=== PATIENT | male | born 1965 | race American Indian/Alaskan Native ===

== ENCOUNTER 2019-10-18 18:27 | Emergency (ER) | payer OTHER, MEDICAID, SELFPAY ==
[2019-10-18 18:34] VITALS: BP 104/77; PULSE 82; RESP 12; TEMP 36.6; O2SAT 98; BMI 26.2
[2019-10-18 18:50] VITALS: BP 103/64; BP 105/59; BP 106/58; PULSE 80; PULSE 82; PULSE 85
--- NOTE | 2019-10-18 18:57 | DI.CT.S_ITS ---
PROCEDURE: CT HEAD/BRAIN WO CON INDICATIONS: Syncope TECHNIQUE: Noncontrast 4.5 mm thick angled axial sections acquired from the foramen magnum to the vertex, with coronal and sagittal reformats. For radiation dose reduction, the following was used: automated exposure control, adjustment of mA and/or kV according to patient size. COMPARISON: None. FINDINGS: Image quality: Excellent. CSF spaces: Basal cisterns are patent. No extra-axial fluid collections. Ventricles are normal in size and shape. Brain: No midline shift. No intracranial masses or hemorrhage. Bone-white matter interface is normal. Chronic left basal ganglia infarct Skull and face: Calvarium and visualized facial bones are intact, without suspicious lesions. Sinuses: Visualized sinuses and mastoids are clear. IMPRESSION: 1. No acute process. 2. Chronic left basal ganglia infarct. Dictated by: Whitney Caba M.D. on 10/18/2019 at 19:27 Approved by: Whitney Caba M.D. on 10/18/2019 at 19:27
--- NOTE | 2019-10-18 18:57 | DI.RAD.S_ITS ---
PROCEDURE: XR CHEST 1V INDICATIONS: Chest pain TECHNIQUE: One view of the chest was acquired. COMPARISON: None. FINDINGS: Surgical changes and devices: None. Lungs and pleura: Lungs are clear. No pleural effusions or pneumothorax. Mediastinum: Mediastinal contours appear normal. Heart size is normal. Bones and chest wall: No suspicious bony lesions. Overlying soft tissues appear unremarkable. IMPRESSION: No acute process. Dictated by: Whitney Caba M.D. on 10/18/2019 at 19:29 Approved by: Whitney Caba M.D. on 10/18/2019 at 19:30
--- NOTE | 2019-10-18 18:59 | ED.SYNCOPE ---
HPI - Syncope General Chief Complaint: Syncope Stated Complaint: Syncope Time Seen by Provider: 10/18/19 18:34 Source: patient, family and EMS Mode of arrival: Ambulatory History of Present Illness HPI narrative: Patient here with his sister. Sister knows his medical history very well. Patient brought in by EMS. Patient and sister and [id number] were at the [employer] today. On the 4th hole patient states he is feeling dizzy. While standing he was starting to collapse, no fall, he was caught by his [id number]. Never completely lost consciousness. He remained awake. He denies denies any headache chest pain numbness tingling weakness anywhere. No recent illness nausea vomiting diarrhea. No urinary complaints. No cough cold congestion. Patient and sister state today's activity is not his usual activity. He was more active today. He lives with his mother in [place]. He has inhibited of keeping water in her room all the time to keep hydrated. Patient and sister state he was picked up at 1:30 p.m. this afternoon and has not had anything to eat or drink since 1:30 p.m.. He has not had anything to eat since breakfast this morning. Accu-Chek on scene was 140. Patient has history of a stroke in 2016 that left him with expressive aphasia and slight right-sided weakness. Patient is at baseline according to sister. His normal blood pressure is usually 110/70. He arrived with IV and nearly sent 5% of the normal saline 1 L has been completed before the orthostatics. Orthostatics completed and he is slightly dizzy with changing position which is sometimes common for him. Not tachycardic. Again, patient has had nearly 75% of 1 L of normal saline. Similar event 2 years ago in [place] when standing in line and very crowded environment. Patient had near syncope as well. Similar to today. He was seen at [facility] and sister states he was discharged home likely vasovagal environment because it was hot. Again, patient denies any chest pain dizziness palpitations. No back pain no headache. Patient recalls the entire event. Denies any recent bloody stools or black stools. No hematemesis. Review of Systems Review of Systems Narrative: GENERAL: Denies chills, fatigue, malaise, fever, sweats. HEENT: Denies sinus pain, ear pain, sore throat, difficulty swallowing, dizziness. RESPIRATORY: Denies dyspnea, cough, wheezing, hemoptysis, sputum. CARDIOVASCULAR: Denies chest pain, palpitations, orthopnea, edema, GASTROINTESTINAL: Denies nausea, vomiting, abdominal pain, diarrhea, constipation, melena. : Denies dysuria, frequency, incontinence, hematuria, urinary retention. MUSCULOSKELETAL: denies weakness, joint pain, or bony pain SKIN: Denies rash, skin lesions, or other NEUROLOGIC: Denies any new weakness, denies headache, numbness, change in speech, confusion, seizures, incoordination. Complains of dizziness PSYCHIATRIC: No concerning psychosocial issues. ROS Unobtainable: All systems reviewed & are unremarkable except as noted in HPI and below Patient History Social History Smoking Status: Never smoker Smoking Status: Never smoker alcohol intake frequency: 0-2 drinks per day Substance Use Type: does not use Exam Narrative Exam Narrative: GENERAL: patient appears stated age. Well-nourished, well-developed patient, in no distress, not toxic HEAD: Atraumatic. Normocephalic. EYES: Pupils equal round and reactive. Extraocular motions intact. No scleral icterus. No injection or drainage. ENT: Nose without bleeding, purulent drainage. Throat without erythema, tonsillar hypertrophy or exudate. Airway patent. NECK: Trachea midline. Non tender CARDIOVASCULAR: Regular rate and rhythm without murmurs, gallops, or rubs. RESPIRATORY: Clear to auscultation. Breath sounds equal bilaterally. No wheezes, rales, or rhonchi. GASTROINTESTINAL: Abdomen soft, non-tender, nondistended. EXTREMITIES: No edema or joint tenderness. BACK: Nontender without deformity or crepitance. No flank tenderness. NEURO: AOx4. Clear speech no facial droop light touch intact to bilateral face hands and legs. Strong equal management tech. Negative pronator drift. Steady Romberg at bedside. [id number]-gb-[id number] intact bilaterally no ataxia SKIN: No rash or erythema of visible areas PSYCH: Not anxious, is cooperative Initial Vital Signs Initial Vital Signs: Vital Signs Temperature 97.8 F 10/18/19 18:34 Pulse Rate 82 10/18/19 18:34 Respiratory Rate 12 10/18/19 18:34 Blood Pressure 104/77 10/18/19 18:34 Pulse Oximetry 98 10/18/19 18:34 Scores NIH Stroke Scale Level of Conciousness: Alert, keenly responsive Ask month/age: Answers both questions correctly. Open/close eyes, close hand: Performs both tasks correctly Best gaze horizontal: Normal Visual rodriguez: No visual loss Facial palsy: Normal symetrical movement Left arm drift: No drift for full 10 sec Right arm drift: No drift for full 10 sec Left leg drift: No drift for full 10 sec Right leg drift: No drift for full 10 sec Limb ataxia: Absent Sensory on face/arms/legs: Normal, no sensory loss Best language: No aphasia, normal Dysarthria: Normal Extinction or inattention: No abnormality Total NIH Stroke scale score: 0 Course Orders Ordered: ED Orders 10/18/19 18:45 Complete Blood Count AUTO DIFF Stat Comprehensive Metabolic Panel Stat Troponin & CK Cardiac Panel Stat 10/18/19 18:57 CT head/brain wo con Stat XR chest 1V Stat EKG-12 Lead Stat Reevaluation(s) Reevaluation #1: Blood pressure 114/76. Heart rate 59. Patient feels much better after normal saline 1 L. Up and walking to the bathroom to try to give urine specimen. No dizziness. Unable give urine at this time. Patient and sister do not want wait for urinalysis. Does not want to be checked for UTI. They desire discharge home at this time. Blood pressure back to baseline Time: 20:32 Vital Signs Vital signs: Vital Signs - 8 hr 10/18/19 18:34 10/18/19 18:50 10/18/19 19:36 Temperature 97.8 F Pulse Rate 82 63 Pulse Rate [Orthostatic Lying] 80 Pulse Rate [Orthostatic Sitting] 82 Pulse Rate [Orthostatic Standing] 85 Respiratory Rate 12 16 Blood Pressure 104/77 Blood Pressure [Orthostatic Lying] 103/64 Blood Pressure [Orthostatic Sitting] 105/59 L Blood Pressure [Orthostatic Standing] 106/58 L Pulse Oximetry 98 100 10/18/19 20:00 10/18/19 20:01 10/18/19 20:30 Temperature Pulse Rate 60 58 L 58 L Pulse Rate [Orthostatic Lying] Pulse Rate [Orthostatic Sitting] Pulse Rate [Orthostatic Standing] Respiratory Rate 23 17 16 Blood Pressure 114/76 113/71 Blood Pressure [Orthostatic Lying] Blood Pressure [Orthostatic Sitting] Blood Pressure [Orthostatic Standing] Pulse Oximetry 99 100 100 MDM - Syncope Differential Diagnosis Differential diagnosis: Likely syncope due to orthostatic hypotension, vasovagal syncope, subarachnoid hemorrhage and dehydration Lab Data Attestation: I reviewed the patient's lab results. Result diagrams: 10/18/19 18:45 10/18/19 18:45 Labs: Lab Results 10/18/19 10/18/19 Range/Units 18:45 18:45 WBC 3.0 L (4.5-11.0) X10^3/uL RBC 4.05 L (4.5-5.9) X10^6/uL Hgb 11.7 L (13.5-17.5) g/dL Hct 33.7 L (41-53) % MCV 83.3 (80-100) fL MCH 29.0 (26-34) PG MCHC 34.8 (30-36) % RDW 14.2 (11.6-14.8) % Plt Count 163 (150-400) X10^3/uL Neut % (Auto) 81.7 H (50-75) % Lymph % (Auto) 10.9 L (25-40) % [place] % (Auto) 5.1 (3-14) % Eos % (Auto) 1.6 L (2-4) % Baso % (Auto) 0.7 (0-2) % Neut # (Auto) 2400 (5984-1390) /uL Lymph # (Auto) 300 L (5002-2733) /uL [place] # (Auto) 200 (0-900) /uL Eos # (Auto) 0 (0-450) /uL Baso # (Auto) 0 (0-100) /uL Sodium 135 L (137-145) mmol/L Potassium 3.7 (3.4-5.1) mmol/L Chloride 102 (98-107) mmol/L Carbon Dioxide 28 (22-32) mmol/L BUN 18 (9-20) mg/dL Creatinine 0.77 (0.66-1.25) mg/dL Estimated GFR > 60.0 (>60) mL/min BUN/Creatinine Ratio 23.4 H (6-22) Glucose 125 H (70-100) mg/dL Calcium 8.5 (8.4-10.2) mg/dL Total Bilirubin 0.6 (0.2-1.3) mg/dL AST 23 (17-59) IU/L ALT 15 (<50) IU/L Alkaline Phosphatase 53 (38-126) U/L Total Creatine Kinase 115 (55-170) U/L CK-MB (CK-2) 1.21 (<2.37) ng/mL CK-MB (CK-2) Rel Index 1.1 L (1.5-5.0) % Troponin I < 0.012 (0.01-0.034) ng/mL Total Protein 6.2 L (6.3-8.2) g/dL Albumin 3.8 (3.5-5.0) g/dL Globulin 2.4 (1.7-4.1) g/dL Albumin/Globulin Ratio 1.6 (1.0-2.8) Imaging Data CT scan - head: Radiologist's Impression: [address] [address] [address] Scan Report Signed Patient: Roberto MyrickMR#: [id number] : 1965Acct:[id number] Age/Sex: 54 / MDate of Service: 10/18/19 Loc: ED Accession Number: [id number] Procedure: CT head/brain wo con Ordering Provider: Dmitri Moya MD PROCEDURE: CT HEAD/BRAIN WO CON INDICATIONS: Syncope TECHNIQUE: Noncontrast 4.5 mm thick angled axial sections acquired from the foramen magnum to the vertex, with coronal and sagittal reformats. For radiation dose reduction, the following was used: automated exposure control, adjustment of mA and/or kV according to patient size. COMPARISON: None. FINDINGS: Image quality: Excellent. CSF spaces: Basal cisterns are patent. No extra-axial fluid collections. Ventricles are normal in size and shape. Brain: No midline shift. No intracranial masses or hemorrhage. Bone-white matter interface is normal. Chronic left basal ganglia infarct Skull and face: Calvarium and visualized facial bones are intact, without suspicious lesions. Sinuses: Visualized sinuses and mastoids are clear. IMPRESSION: 1. No acute process. 2. Chronic left basal ganglia infarct. Dictated by: Whitney Caba M.D. on 10/18/2019 at 19:27 Approved by: Whitney Caba M.D. on 10/18/2019 at 19:27 Chest x-ray: Radiologist's Impression: [address] [address] XRay Report Signed Patient: Roberto MyrickMR#: [id number] : 1965Acct:[id number] Age/Sex: 54 / MDate of Service: 10/18/19 Loc: ED Accession Number: [id number] Procedure: XR chest 1V Ordering Provider: Dmitri Moya MD PROCEDURE: XR CHEST 1V INDICATIONS: Chest pain TECHNIQUE: One view of the chest was acquired. COMPARISON: None. FINDINGS: Surgical changes and devices: None. Lungs and pleura: Lungs are clear. No pleural effusions or pneumothorax. Mediastinum: Mediastinal contours appear normal. Heart size is normal. Bones and chest wall: No suspicious bony lesions. Overlying soft tissues appear unremarkable. IMPRESSION: No acute process. Dictated by: Whitney Caba M.D. on 10/18/2019 at 19:29 Approved by: Whitney Caba M.D. on 10/18/2019 at 19:30 ECG Data Attestation: I personally reviewed and interpreted this ECG as follows: Interpretation: Normal sinus rhythm normal EKG ventricular rate 70, no ST elevation depression MDM Narrative Medical decision making narrative: Appropriate for discharge home. Event a likely to low volume status as patient usually drinks a lot of fluids throughout the day and hourly. He did not drink for over many hours. Also the excitement of today and out of his usual routine. Similar event 2 years ago in [place]. See note above. Hemoglobin level noted. This may be patient's baseline. Attempted to get records from [facility] but no labs available. Discharge Plan Departure Patient Disposition: Home Clinical Impression: Vasovagal syncope Discharge Date/Time: 10/18/19 21:06 Instructions: DI for Syncope in Adults (Fainting) Activity Restrictions/Additional Instructions: Return if any questions concerns or if any worsening symptoms. Keep well hydrated. See family doctor this week for recheck. No prescriptions indicated at this time.
[2019-10-18 19:03] LABS: Add Manual Diff / Slide Review NO; Basophils Absolute Auto 0 /uL (0-100); Basophils Percent Auto 0.7 % (0-2); Eosinophils Absolute Auto 0 /uL (0-450); Eosinophils Percent Auto 1.6 % (2-4); Hematocrit 33.7 % (41-53); Hemoglobin 11.7 g/dL (13.5-17.5); Lymphocytes Absolute Auto 300 /uL (1100-4500); Lymphocytes Percent Auto 10.9 % (25-40); Mean Corpuscular HGB Conc 34.8 % (30-36); Mean Corpuscular Volume 83.3 fL (80-100); Monocytes Absolute Auto 200 /uL (0-900); Monocytes Percent Auto 5.1 % (3-14); Neutrophils Absolute Auto 2400 /uL (1500-7000); Neutrophils Percent Auto 81.7 % (50-75); Platelet Count 163 X10^3/uL (150-400); Red Blood Cell Count 4.05 X10^6/uL (4.5-5.9); Red Cell Distribution Width 14.2 % (11.6-14.8)
[2019-10-18 19:14] LABS: Alanine Aminotransferase 15 IU/L (<50); Albumin 3.8 g/dL (3.5-5.0); Albumin Globulin Ratio 1.6 (1.0-2.8); Alkaline Phosphatase 53 U/L (38-126); Aspartate Aminotransferase 23 IU/L (17-59); BUN Creatinine Ratio 23.4 (6-22); Bilirubin Total 0.6 mg/dL (0.2-1.3); Blood Urea Nitrogen 18 mg/dL (9-20); Calcium 8.5 mg/dL (8.4-10.2); Carbon Dioxide 28 mmol/L (22-32); Chloride 102 mmol/L (98-107); Creatine Kinase 115 U/L (55-170); Estimated Glomerular Filt Rate > 60.0 mL/min (>60); Globulin 2.4 g/dL (1.7-4.1); Glucose 125 mg/dL (70-100); HEMOLYSIS < 15 (0-50); Potassium 3.7 mmol/L (3.4-5.1); Sodium 135 mmol/L (137-145); Total Protein 6.2 g/dL (6.3-8.2)
[2019-10-18 19:26] LABS: Troponin I < 0.012 ng/mL (0.01-0.034)
--- NOTE | 2019-10-18 19:26 | PC.NURSE ---
History of CVA in 2016 with residual word finding trouble and some right sided weakness, per pt/sister report. Pt denies pain
[2019-10-18 19:29] LABS: CKMB % Relative Index 1.1 % (1.5-5.0); Creatine Kinase MB 1.21 ng/mL (<2.37)
[2019-10-18 19:36] VITALS: PULSE 63; RESP 16; O2SAT 100
--- NOTE | 2019-10-18 19:56 | PC.NURSE ---
ambulated pt to the bathroom. Pt stated that he felt mildly dizzy while walking. Pt was unable to urinate, but his sister stated that he has had previous issue with it. DORINA nuñez
[2019-10-18 20:00] VITALS: PULSE 60; RESP 23; O2SAT 99
[2019-10-18 20:01] VITALS: BP 114/76; PULSE 58; RESP 17; O2SAT 100
[2019-10-18 20:30] VITALS: BP 113/71; PULSE 58; RESP 16; O2SAT 100
== END 2019-10-18 21:06 | disposition home or self-care (01) ==
PROVIDERS: Emergency Provider Emergency Medicine
DX: R55 Syncope and collapse (principal); R07.9 Chest pain, unspecified
CPT/HCPCS: 36415; 70450; 71045; 80053; 82550; 82553; 84484; 85025; 93005; 99283; 99284